=== PATIENT | female | born 1990 | race Caucasian/White ===

== ENCOUNTER 2017-11-27 07:50 | Inpatient (IN) | payer SELFPAY ==
[~2017-11-27] VITALS: Ht 162.6 cm; Wt 64.9 kg
[2017-12-02 03:40] VITALS: BP 122/75
[2017-12-02] MEDS ORDERED: OXYTOCIN 20 UNITS/LR PREMIX 1,000 ML IV ONE (03:57)
[2017-12-02] MEDS ORDERED: OXYTOCIN 10 UNITS/ML VIAL ONE (03:57)
[2017-12-02] MEDS ORDERED: LIDOCAINE MPF 1% - **ER/OR** 20 ML ONE ×2 (03:58→07:33)
[2017-12-02] MEDS ORDERED: FERR-252 PO (04:14)
[2017-12-02] MEDS ORDERED: PREN-546 PO (04:14)
[2017-12-02] MEDS ORDERED: CARBOPROST 250 MCG/ML AMP IM PRN (04:15)
[2017-12-02] MEDS ORDERED: LACTATED RINGERS 1,000 ML IV SCH (04:15)
[2017-12-02] MEDS ORDERED: OXYTOCIN 20 UNITS in LACTATED RINGERS 1,000 ML IV SCH ×2 (04:15→08:14)
[2017-12-02] MEDS ORDERED: OXYTOCIN 10 UNITS/ML VIAL IM PRN (04:15)
[2017-12-02] MEDS ORDERED: METHYLERGONOVINE 0.2 MG/ML AMP IM PRN (04:15)
[2017-12-02 04:33] LABS: HEMATOCRIT 36.3 % (36-48); MEAN CORPUSCULAR HEMOGLOBIN 31 pg (27-31); MEAN CORPUSCULAR HGB CONC 33 g/dL (33-37); PLATELET COUNT (AUTO) 165 K/uL (140-450); RED BLOOD CELL COUNT(AUTO) 3.94 MIL/uL (4.20-5.40); RED CELL DISTRIBUTION WIDTH 12.4 % (11.6-13.7); WHITE BLOOD COUNT (AUTO) 13.4 K/uL (4.8-10.8)
[2017-12-02 04:44] LABS: LYMPHOCYTES % (MANUAL) 1 % (20-46); MONOCYTES % (MANUAL) 1 % (5-12)
[2017-12-02] MEDS ORDERED: LIDOCAINE MPF 1% - **ER/OR** 10 ML ONE (04:52)
[2017-12-02] MEDS ORDERED: MEASLES, MUMPS, AND RUBELLA 1 VIAL SQVAC PRN (08:15)
[2017-12-02] MEDS ORDERED: ACETAMINOPHEN 325 MG TAB PO PRN (08:15)
[2017-12-02] MEDS ORDERED: BENZOCAINE/MENTHOL 20%-0.5% 60 GM CAN TP PRN (08:15)
[2017-12-02] MEDS ORDERED: IBUPROFEN 600 MG TAB PO PRN (08:15)
--- NOTE | 2017-12-03 08:31 | NUR ---
PATIENT HAS BEEN SCREENED AND CATEGORIZED LOW NUTRITION RISK. PATIENT WILL BE SEEN WITHIN 7 DAYS OF ADMISSION. 12/08/[address]
[2017-12-03 09:34] LABS: BASOPHILS % (AUTO) 0.2 % (0.0-2.0); EOSINOPHILS % (AUTO) 0.4 % (0.0-4.0); HEMATOCRIT 37.1 % (36-48); LYMPHOCYTES # (AUTO) 1.9 K/uL (2.5-16.5); LYMPHOCYTES % (AUTO) 13.7 % (20.5-51.1); MEAN CORPUSCULAR HEMOGLOBIN 30 pg (27-31); MEAN CORPUSCULAR HGB CONC 32 g/dL (33-37); MEAN CORPUSCULAR VOLUME 93.5 fL (80-94); MONOCYTES # (AUTO) 0.6 K/uL (0.8-1.0); MONOCYTES % (AUTO) 4.5 % (1.7-9.3); NEUTROPHILS # (AUTO) 11.2 K/uL (1.8-7.7); NEUTROPHILS % (AUTO) 81.2 % (42.2-75.2); PLATELET COUNT (AUTO) 164 K/uL (140-450); RED BLOOD CELL COUNT(AUTO) 3.97 MIL/uL (4.20-5.40); RED CELL DISTRIBUTION WIDTH 13.6 % (11.6-13.7); WHITE BLOOD COUNT (AUTO) 13.8 K/uL (4.8-10.8)
[2017-12-03] MEDS: DOCUSATE SODIUM 100 MG GELCAP PO PRN (21:39)
[2017-12-03] MEDS: BISACODYL 5 MG TABEC PO PRN (21:39)
== END 2017-12-04 17:25 | disposition home or self-care (01) | DRG 775 ==
LOC: MLD 12-02 03:35 → MFCC 12-02 11:08
PROVIDERS: ADMIT Obstetrics & Gynecology; ATTEND Obstetrics & Gynecology
PROC: 10E0XZZ Delivery of Products of Conception, External Approach (ICD-10-PCS; principal; 2017-12-02)
PROC: 0HQ9XZZ Repair Perineum Skin, External Approach (ICD-10-PCS; 2017-12-02)
PROC: 3E0234Z Introduction of Serum, Toxoid and Vaccine into Muscle, Percutaneous Approach (ICD-10-PCS; 2017-12-03)
DX: O70.0 First degree perineal laceration during delivery (principal); Z3A.39 39 weeks gestation of pregnancy; Z37.0 Single live birth; Z83.3 Family history of diabetes mellitus; Z23 Encounter for immunization
CPT/HCPCS: 36415; 59409; 85025; 86592; 86886; 86900; 86901; 90715; J2001; J2590; J7120

== ENCOUNTER 2019-03-08 02:30 | Inpatient (IN) | payer SELFPAY ==
[~2019-03-08] VITALS: Ht 157.5 cm; Wt 66.2 kg
[~2019-03-08 02:30] MED LIST: FERR-252 PO; PREN-546 PO
[2019-03-08] MEDS ORDERED: LACTATED RINGERS 1,000 ML IV SCH (02:52)
[2019-03-08] MEDS ORDERED: OXYTOCIN 10 UNITS/ML VIAL IM SCH (02:55)
[2019-03-08] MEDS ORDERED: LIDOCAINE 1% 500 MG/50 ML VIAL INJ ONE (02:55)
[2019-03-08] MEDS ORDERED: CARBOPROST 250 MCG/ML AMP IM PRN (02:55)
[2019-03-08] MEDS ORDERED: OXYTOCIN 20 UNITS in LACTATED RINGERS 1,000 ML IV SCH ×2 (02:55→16:54)
[2019-03-08] MEDS ORDERED: AMPICILLIN 2,000 MG in NACL 0.9% MINI-BAG PLUS 100 ML IV SCH (02:55)
[2019-03-08] MEDS ORDERED: METHYLERGONOVINE 0.2 MG/ML AMP IM PRN (02:55)
[2019-03-08] MEDS ORDERED: PROMETHAZINE 25 MG/ML VIAL IVP PRN (02:55)
[2019-03-08] MEDS ORDERED: NALBUPHINE 10 MG/ML AMP IVP SCH (02:55)
[2019-03-08] MEDS ORDERED: OXYTOCIN 20 UNITS/LR PREMIX 1,000 ML IV ONE (03:17)
[2019-03-08] MEDS ORDERED: AMPICILLIN 2,000 MG VIAL ONE (03:22)
[2019-03-08 03:48] LABS: BASOPHILS % (AUTO) 0.6 % (0.0-2.0); EOSINOPHILS # (AUTO) 0.1 K/uL (0-0.4); EOSINOPHILS % (AUTO) 0.9 % (0.0-4.0); HEMATOCRIT 33.4 % (36-48); HEMOGLOBIN 11.2 g/dL (12.0-16.0); LYMPHOCYTES # (AUTO) 1.9 K/uL (2.5-16.5); LYMPHOCYTES % (AUTO) 25.2 % (20.5-51.1); MEAN CORPUSCULAR HEMOGLOBIN 31 pg (27-31); MEAN CORPUSCULAR HGB CONC 33 g/dL (33-37); MEAN CORPUSCULAR VOLUME 91.1 fL (80-94); MONOCYTES # (AUTO) 0.5 K/uL (0.8-1.0); MONOCYTES % (AUTO) 7.1 % (1.7-9.3); NEUTROPHILS % (AUTO) 66.2 % (42.2-75.2); PLATELET COUNT (AUTO) 158 K/uL (140-450); RED BLOOD CELL COUNT(AUTO) 3.66 MIL/uL (4.20-5.40); RED CELL DISTRIBUTION WIDTH 13.9 % (11.6-13.7); WHITE BLOOD COUNT (AUTO) 7.6 K/uL (4.8-10.8)
[2019-03-08 04:03] LABS: APPEARANCE,URINE CLEAR (CLEAR); BILIRUBIN,URINE NEGATIVE (NEGATIVE); BLOOD, URINE NEGATIVE (NEGATIVE); COLOR,URINE YELLOW (YELLOW); LEUKOCYTE ESTERASE ,URINE NEGATIVE (NEGATIVE); NITRITE, URINE NEGATIVE (NEGATIVE); UGLUCOSE NEGATIVE (NEGATIVE)
[2019-03-08 04:23] LABS: RBC,URINE 0-5 /HPF (0-5); WBC,URINE 0-5 /HPF (0-5)
[2019-03-08 04:56] VITALS: BP 109/71
[2019-03-08] MEDS ORDERED: LIDOCAINE 1% 500 MG/50 ML VIAL ONE (05:55)
[2019-03-08] MEDS ORDERED: AMPICILLIN 1,000 MG VIAL ONE ×2 (07:23→11:13)
[2019-03-08] MEDS: AMPICILLIN 1,000 MG in NACL 0.9% MINI-BAG PLUS 50 ML IV SCH ×2 (07:35→11:21)
--- NOTE | 2019-03-08 09:06 | NUR ---
PATIENT HAS BEEN SCREENED AND CATEGORIZED LOW NUTRITION RISK. PATIENT WILL BE SEEN WITHIN 7 DAYS OF ADMISSION. 03/15/[address]
[2019-03-08] MEDS ORDERED: OXYTOCIN 10 UNITS/ML VIAL ONE (10:55)
[2019-03-08] MEDS ORDERED: ROPIVACAINE 0.2%/NS PREMIX 100 ML EPI ONE (12:36)
[2019-03-08] MEDS ORDERED: DOCUSATE SODIUM 100 MG GELCAP PO PRN (16:55)
[2019-03-08] MEDS ORDERED: BENZOCAINE/MENTHOL 20%-0.5% 60 GM CAN TP PRN (16:55)
[2019-03-08] MEDS ORDERED: MEASLES, MUMPS, AND RUBELLA 1 VIAL SQVAC PRN (16:55)
[2019-03-08] MEDS ORDERED: ACETAMINOPHEN 325 MG TAB PO PRN (16:55)
[2019-03-08] MEDS ORDERED: BISACODYL 5 MG TABEC PO PRN (16:55)
[2019-03-08] MEDS ORDERED: IBUPROFEN 600 MG TAB PO PRN (16:55)
[2019-03-09 08:01] LABS: BASOPHILS # (AUTO) 0.1 K/uL (0.00-0.22); BASOPHILS % (AUTO) 0.8 % (0.0-2.0); EOSINOPHILS % (AUTO) 0.3 % (0.0-4.0); HEMOGLOBIN 11.2 g/dL (12.0-16.0); LYMPHOCYTES # (AUTO) 1.7 K/uL (2.5-16.5); LYMPHOCYTES % (AUTO) 14.6 % (20.5-51.1); MEAN CORPUSCULAR HEMOGLOBIN 30 pg (27-31); MEAN CORPUSCULAR HGB CONC 33 g/dL (33-37); MEAN CORPUSCULAR VOLUME 91.1 fL (80-94); MONOCYTES # (AUTO) 0.7 K/uL (0.8-1.0); NEUTROPHILS # (AUTO) 8.9 K/uL (1.8-7.7); NEUTROPHILS % (AUTO) 78.3 % (42.2-75.2); PLATELET COUNT (AUTO) 162 K/uL (140-450); RED BLOOD CELL COUNT(AUTO) 3.73 MIL/uL (4.20-5.40); RED CELL DISTRIBUTION WIDTH 14.4 % (11.6-13.7); WHITE BLOOD COUNT (AUTO) 11.4 K/uL (4.8-10.8)
== END 2019-03-09 20:20 | disposition home or self-care (01) | DRG 807 ==
LOC: MLD 02:30 → MFCC 18:45
PROVIDERS: ADMIT Obstetrics & Gynecology; ATTEND Obstetrics & Gynecology
PROC: 10E0XZZ Delivery of Products of Conception, External Approach (ICD-10-PCS; principal; 2019-03-08)
PROC: 10907ZC Drainage of Amniotic Fluid, Therapeutic from Products of Conception, Via Natural or Artificial Opening (ICD-10-PCS; 2019-03-08)
PROC: 3E033VJ Introduction of Other Hormone into Peripheral Vein, Percutaneous Approach (ICD-10-PCS; 2019-03-08)
PROC: 0HQ9XZZ Repair Perineum Skin, External Approach (ICD-10-PCS; 2019-03-08)
PROC: 00HU33Z Insertion of Infusion Device into Spinal Canal, Percutaneous Approach (ICD-10-PCS; 2019-03-08)
PROC: 3E0R3BZ Introduction of Anesthetic Agent into Spinal Canal, Percutaneous Approach (ICD-10-PCS; 2019-03-08)
DX: O99.824 Streptococcus B carrier state complicating childbirth (principal); Z37.0 Single live birth; Z90.49 Acquired absence of other specified parts of digestive tract; Z3A.39 39 weeks gestation of pregnancy; O70.9 Perineal laceration during delivery, unspecified
CPT/HCPCS: 36415; 51702; 59070; 59409; 81001; 85025; 86592; 86886; 86900; 86901; J0290; J2001; J2590; J2795; J7120